=== PATIENT | male | born 1975 | race Caucasian/White ===

== ENCOUNTER → 2016-11-22 | Outpatient (CLI) | payer OTHER ==
[~2016-11-22] MED LIST: ATARAX25 MG PO; BACTRIM DS 8001 TA1 PO; FLEXERIL10 MG PO; IBU-6600 MG PO; MOTRIN800 MG PO; NKHM; NORCO 325 MG-51 TAB PO; PREDNICOT20 MG PO; PREDNISONE5 MG PO; SUBOXONE 8 MG-21 TA2 PO; TAGAMET400 MG PO; ULTRAM50 MG PO; ZANTAC 150150 MG PO
[2016-11-22 17:52] LABS: URINE AMPHETAMINES < 1000 (1000ng/ml); URINE BARBITURATES < 200 (200ng/ml); URINE COCAINE < 300 (300ng/ml)
== END | disposition home or self-care (01) ==
LOC: LAB 16:57
PROVIDERS: Internal Medicine
DX: F11.20 Opioid dependence, uncomplicated (principal)

== ENCOUNTER → 2017-04-07 | Outpatient (CLI) | payer OTHER | END | disposition home or self-care (01) | LOC: RAD 17:39 | DX: M25.532 Pain in left wrist (principal); M79.642 Pain in left hand; M79.632 Pain in left forearm ==

== ENCOUNTER → 2017-10-18 | Outpatient (CLI) | payer OTHER ==
[2017-10-18 16:24] LABS: URINE AMPHETAMINES < 1000 (1000ng/ml); URINE BARBITURATES < 200 (200ng/ml); URINE BENZODIAZEPINES < 200 (200ng/ml); URINE CANNABINOIDS (THC) < 50 (50ng/ml); URINE COCAINE < 300 (300ng/ml); URINE METHADONE < 300 (300ng/ml); URINE OPIATES < 300 (300ng/ml)
[2017-10-18 16:25] LABS: URINE PHENCYCLIDINE < 25 (25ng/ml)
== END | disposition home or self-care (01) ==
LOC: LAB 16:01
PROVIDERS: Internal Medicine
DX: F11.20 Opioid dependence, uncomplicated (principal)

== ENCOUNTER 2017-11-22 23:44 | Emergency (ER) | payer OTHER ==
[~2017-11-22] VITALS: Ht 175.2 cm; Wt 72.6 kg
[2017-11-23] MEDS ORDERED: ANAPROX DS550 MG PO (00:45)
[2017-11-23] MEDS ORDERED: Orphenadrine C100 MG PO (00:45)
== END 2017-11-23 01:20 | disposition home or self-care (01) ==
LOC: ED 23:44
DX: S50.01XA Contusion of right elbow, initial encounter (principal); S40.011A Contusion of right shoulder, initial encounter; W07.XXXA Fall from chair, initial encounter; Y93.89 Activity, other specified; Y92.89 Other specified places as the place of occurrence of the external cause; Y99.9 Unspecified external cause status

== ENCOUNTER 2018-04-12 20:31 | Emergency (ER) | payer OTHER ==
[~2018-04-12] VITALS: Ht 175.2 cm; Wt 72.6 kg
[~2018-04-12 20:31] MED LIST changes: +ANAPROX DS550 MG PO; +Orphenadrine C100 MG PO
== END 2018-04-12 20:51 | disposition home or self-care (01) ==
LOC: ED 20:31
DX: R11.2 Nausea with vomiting, unspecified (principal); R19.7 Diarrhea, unspecified; F17.200 Nicotine dependence, unspecified, uncomplicated

== ENCOUNTER 2018-06-20 17:04 | Emergency (ER) | payer OTHER ==
[~2018-06-20] VITALS: Ht 175.2 cm; Wt 63.5 kg
[2018-06-20] MEDS ORDERED: NAPROSYN500 MG PO (19:14)
[2018-06-20] MEDS ORDERED: PENICILLIN VK500 MG PO (19:14)
== END 2018-06-20 19:18 | disposition home or self-care (01) ==
LOC: ED 17:04
DX: K04.7 Periapical abscess without sinus (principal); F17.200 Nicotine dependence, unspecified, uncomplicated; Z79.1 Long term (current) use of non-steroidal anti-inflammatories (NSAID); Z79.899 Other long term (current) drug therapy

== ENCOUNTER 2018-11-25 19:48 | Emergency (ER) | payer OTHER ==
[~2018-11-25] VITALS: Ht 172.7 cm; Wt 68.0 kg
[~2018-11-25 19:48] MED LIST changes: +NAPROSYN500 MG PO; +PENICILLIN VK500 MG PO
[2018-11-25 20:51] LABS: BASO % 0.5 % (0.0-1.0); EOS # 0.5 10*3/uL (0.0-0.4); EOS % 5.9 % (1.0-4.0); HEMATOCRIT 39.7 % (42.0-52.0); HEMOGLOBIN 13.1 g/dl (14.0-18.0); LYMPH # 3.1 10*3/uL (1.3-4.4); MEAN CELL VOLUME 90.8 fl (80.0-94.0); MEAN PLATELET VOLUME 10.1 fl (9.6-12.3); MONO # 0.8 10*3/uL (0.1-1.0); MONO % 10.3 % (3.0-9.0); NEUT # 3.5 10*3/uL (2.3-7.9); PLATELET COUNT AUTOMATED 250 10*3/uL (130-400); RED BLOOD COUNT 4.37 10*6/uL (4.50-5.90); RED CELL DISTRI WIDTH 12.9 % (0-14.5)
[2018-11-25 21:16] LABS: ALBUMIN 3.5 gm/dl (3.1-4.5); ALKALINE PHOSPHATASE 69 U/L (45-117); BUN 15 mg/dl (7-24); CHLORIDE 108 mmol/L (98-107); CREATININE 0.75 mg/dL (0.70-1.30); LIPASE 132 U/L (73-393); POTASSIUM 4.3 mmol/L (3.5-5.1); SGOT/AST 78 IU/L (3-35); SGPT/ALT 82 U/L (12-78); SODIUM 140 mmol/L (136-145); TOTAL PROTEIN 7.7 gm/dL (6.4-8.2)
[2018-11-25] MEDS ORDERED: ZOFRAN4 MG PO (21:25)
== END 2018-11-25 21:42 | disposition home or self-care (01) ==
LOC: ED 19:48
PROVIDERS: Physician Assistant
DX: K52.9 Noninfective gastroenteritis and colitis, unspecified (principal)

== ENCOUNTER 2018-12-17 18:43 | Emergency (ER) | payer SELFPAY ==
[~2018-12-17] VITALS: Ht 175.2 cm; Wt 68.0 kg
[~2018-12-17 18:43] MED LIST changes: +ZOFRAN4 MG PO
[2018-12-17] MEDS ORDERED: MIRALAX POWDER17 G1 PO (21:10)
== END 2018-12-17 21:16 | disposition home or self-care (01) ==
LOC: ED 18:43
DX: K59.00 Constipation, unspecified (principal); F17.200 Nicotine dependence, unspecified, uncomplicated

== ENCOUNTER → 2019-05-01 | Outpatient (CLI) | payer OTHER ==
[~2019-05-01] MED LIST changes: +MIRALAX POWDER17 G1 PO
[2019-05-01 12:34] LABS: URINE AMPHETAMINES < 1000 (1000ng/ml); URINE BARBITURATES < 200 (200ng/ml); URINE BENZODIAZEPINES < 200 (200ng/ml); URINE CANNABINOIDS (THC) < 50 (50ng/ml); URINE COCAINE < 300 (300ng/ml); URINE METHADONE < 300 (300ng/ml); URINE OPIATES < 300 (300ng/ml); URINE PHENCYCLIDINE < 25 (25ng/ml)
== END | disposition home or self-care (01) ==
LOC: LAB 12:02
PROVIDERS: Internal Medicine
DX: F11.20 Opioid dependence, uncomplicated (principal)

== ENCOUNTER 2019-05-09 22:58 | Emergency (ER) | payer OTHER ==
[~2019-05-09] VITALS: Ht 170.1 cm; Wt 68.0 kg
[2019-05-09 23:24] LABS: BILIRUBIN NEGATIVE (NEGATIVE); BLOOD NEGATIVE (NEGATIVE); CLARITY SL CLOUDY (CLEAR); COLOR YELLOW (YELLOW); GLUCOSE NEGATIVE (NEGATIVE); KETONE NEGATIVE (NEGATIVE); LEUKO ESTERASE NEGATIVE (NEGATIVE); NITRITE NEGATIVE (NEGATIVE); PH 5.5 (5.0-9.0); SPECIFIC GRAVITY >= 1.030 (1.005-1.030)
[2019-05-09 23:35] LABS: BACTERIA TRACE; EPITHELIAL CELLS 0-2; MUCOUS TRACE; RBC 0-2 rbc/hpf (0-2); WBC 0-2 wbc/hpf (0-5)
[2019-05-09 23:39] LABS: BASO % 0.4 % (0.0-1.0); EOS # 0.6 10*3/uL (0.0-0.4); EOS % 6.1 % (1.0-4.0); HEMATOCRIT 40.5 % (42.0-52.0); HEMOGLOBIN 13.7 g/dl (14.0-18.0); LYMPH # 3.2 10*3/uL (1.3-4.4); LYMPH % 35.6 % (27.0-41.0); MEAN CELL VOLUME 89.4 fl (80.0-94.0); MEAN CORPUSCULAR HGB 30.2 pg (27.0-31.0); MEAN CORPUSCULAR HGB CONC 33.8 g/dl (33.0-37.0); MEAN PLATELET VOLUME 9.6 fl (9.6-12.3); MONO # 0.8 10*3/uL (0.1-1.0); MONO % 8.9 % (3.0-9.0); NEUT # 4.4 10*3/uL (2.3-7.9); NEUT % 48.8 % (47.0-73.0); PLATELET COUNT AUTOMATED 292 10*3/uL (130-400); RED BLOOD COUNT 4.53 10*6/uL (4.50-5.90)
[2019-05-09 23:53] LABS: ALBUMIN 4.1 gm/dl (3.1-4.5); ALKALINE PHOSPHATASE 78 U/L (45-117); BUN 21 mg/dl (7-24); CHLORIDE 106 mmol/L (98-107); CREATININE 0.83 mg/dL (0.70-1.30); LIPASE 152 U/L (73-393); POTASSIUM 3.7 mmol/L (3.5-5.1); SGOT/AST 75 IU/L (3-35); SGPT/ALT 95 U/L (12-78); SODIUM 138 mmol/L (136-145)
[2019-05-10] MEDS ORDERED: ULTRAM50 MG PO (00:53)
== END 2019-05-10 01:23 | disposition home or self-care (01) ==
LOC: ED 22:58
PROVIDERS: Emergency Medicine Emergency Medical Services
DX: R10.9 Unspecified abdominal pain (principal); R82.998 Other abnormal findings in urine; R74.0 Nonspecific elevation of levels of transaminase and lactic acid dehydrogenase [LDH]; F17.200 Nicotine dependence, unspecified, uncomplicated; Z79.899 Other long term (current) drug therapy; Z79.2 Long term (current) use of antibiotics

== ENCOUNTER → 2019-05-22 | Outpatient (CLI) | payer OTHER ==
[2019-05-22 16:38] LABS: URINE AMPHETAMINES < 1000 (1000ng/ml); URINE BARBITURATES < 200 (200ng/ml); URINE BENZODIAZEPINES < 200 (200ng/ml); URINE CANNABINOIDS (THC) < 50 (50ng/ml); URINE COCAINE < 300 (300ng/ml); URINE METHADONE < 300 (300ng/ml); URINE OPIATES < 300 (300ng/ml); URINE PHENCYCLIDINE < 25 (25ng/ml)
== END | disposition home or self-care (01) ==
LOC: LAB 16:07
PROVIDERS: Internal Medicine
DX: F11.21 Opioid dependence, in remission (principal)

== ENCOUNTER 2019-05-23 02:27 | Emergency (ER) | payer OTHER ==
[~2019-05-23] VITALS: Ht 170.1 cm; Wt 68.0 kg
[2019-05-23 03:40] LABS: BASO % 0.5 % (0.0-1.0); EOS # 0.6 10*3/uL (0.0-0.4); HEMATOCRIT 39.3 % (42.0-52.0); HEMOGLOBIN 13.3 g/dl (14.0-18.0); LYMPH # 2.8 10*3/uL (1.3-4.4); LYMPH % 38.4 % (27.0-41.0); MEAN CELL VOLUME 89.9 fl (80.0-94.0); MEAN CORPUSCULAR HGB 30.4 pg (27.0-31.0); MEAN CORPUSCULAR HGB CONC 33.8 g/dl (33.0-37.0); MEAN PLATELET VOLUME 9.4 fl (9.6-12.3); MONO # 0.8 10*3/uL (0.1-1.0); MONO % 11.2 % (3.0-9.0); NEUT % 41.8 % (47.0-73.0); PLATELET COUNT AUTOMATED 280 10*3/uL (130-400); RED BLOOD COUNT 4.37 10*6/uL (4.50-5.90); RED CELL DISTRI WIDTH 13.2 % (0-14.5); WHITE BLOOD COUNT 7.3 10*3/uL (4.8-10.8)
[2019-05-23 03:55] LABS: ALBUMIN 3.7 gm/dl (3.1-4.5); ALKALINE PHOSPHATASE 69 U/L (45-117); BUN 13 mg/dl (7-24); CHLORIDE 106 mmol/L (98-107); CREATININE 0.78 mg/dL (0.70-1.30); LIPASE 179 U/L (73-393); SGOT/AST 64 IU/L (3-35); SGPT/ALT 82 U/L (12-78); SODIUM 138 mmol/L (136-145); TOTAL PROTEIN 7.5 gm/dL (6.4-8.2)
[2019-05-23 03:59] LABS: BILIRUBIN NEGATIVE (NEGATIVE); BLOOD NEGATIVE (NEGATIVE); CLARITY CLEAR (CLEAR); COLOR YELLOW (YELLOW); GLUCOSE NEGATIVE (NEGATIVE); KETONE NEGATIVE (NEGATIVE); LEUKO ESTERASE NEGATIVE (NEGATIVE); NITRITE NEGATIVE (NEGATIVE); PH 6.5 (5.0-9.0)
[2019-05-23 04:06] LABS: BACTERIA TRACE; EPITHELIAL CELLS 0-2; MUCOUS TRACE; WBC 0-2 wbc/hpf (0-5)
[2019-05-23 04:07] LABS: URINE AMPHETAMINES < 1000 (1000ng/ml); URINE BARBITURATES < 200 (200ng/ml); URINE BENZODIAZEPINES < 200 (200ng/ml); URINE CANNABINOIDS (THC) < 50 (50ng/ml); URINE COCAINE < 300 (300ng/ml); URINE METHADONE < 300 (300ng/ml); URINE OPIATES < 300 (300ng/ml); URINE PHENCYCLIDINE < 25 (25ng/ml)
== END 2019-05-23 05:24 | disposition home or self-care (01) ==
LOC: ED 02:27
PROVIDERS: Emergency Medicine
DX: R74.0 Nonspecific elevation of levels of transaminase and lactic acid dehydrogenase [LDH] (principal); Z76.0 Encounter for issue of repeat prescription; R10.11 Right upper quadrant pain; Z79.899 Other long term (current) drug therapy

== ENCOUNTER 2019-08-13 22:00 | Emergency (ER) | payer OTHER ==
[~2019-08-13] VITALS: Ht 175.2 cm; Wt 68.0 kg
[~2019-08-13 22:00] MED LIST changes: +SUBOXONE 8 MG-1 EACH SL; -SUBOXONE 8 MG-21 TA2 PO
[2019-08-13] MEDS ORDERED: CLARITIN10 MG PO (23:29)
== END 2019-08-13 23:39 | disposition home or self-care (01) ==
LOC: ED 22:00
DX: J06.9 Acute upper respiratory infection, unspecified (principal); M06.9 Rheumatoid arthritis, unspecified; Z79.899 Other long term (current) drug therapy

== ENCOUNTER → 2019-09-27 | Outpatient (CLI) | payer OTHER ==
[~2019-09-27] MED LIST changes: +CLARITIN10 MG PO
[2019-09-27 16:46] LABS: URINE CANNABINOIDS (THC) < 50 (50ng/ml); URINE COCAINE < 300 (300ng/ml); URINE METHADONE < 300 (300ng/ml); URINE OPIATES < 300 (300ng/ml)
[2019-09-27 16:47] LABS: URINE AMPHETAMINES < 1000 (1000ng/ml); URINE BARBITURATES < 200 (200ng/ml); URINE BENZODIAZEPINES < 200 (200ng/ml)
[2019-09-27 16:53] LABS: URINE PHENCYCLIDINE < 25 (25ng/ml)
== END | disposition home or self-care (01) ==
LOC: LAB 15:56
PROVIDERS: Internal Medicine
DX: F11.20 Opioid dependence, uncomplicated (principal)

== ENCOUNTER 2020-01-16 15:56 | Emergency (ER) | payer OTHER ==
[~2020-01-16] VITALS: Ht 172.7 cm; Wt 71.7 kg
[~2020-01-16 15:56] MED LIST changes: -CLEOCIN HCL150 MG PO; -IBU800 MG PO
[2020-01-16] MEDS ORDERED: CLEOCIN HCL150 MG PO (16:29)
[2020-01-16] MEDS ORDERED: IBU800 MG PO (16:29)
== END 2020-01-16 16:48 | disposition home or self-care (01) ==
LOC: ED 15:56
DX: K04.7 Periapical abscess without sinus (principal); K08.89 Other specified disorders of teeth and supporting structures; M19.90 Unspecified osteoarthritis, unspecified site; F17.200 Nicotine dependence, unspecified, uncomplicated; Z79.899 Other long term (current) drug therapy

== ENCOUNTER → 2020-01-16 | Outpatient (CLI) | payer OTHER ==
[~2020-01-16] MED LIST changes: +CLEOCIN HCL150 MG PO; +IBU800 MG PO
[2020-01-16 17:41] LABS: URINE AMPHETAMINES < 1000 (1000ng/ml); URINE BARBITURATES < 200 (200ng/ml); URINE BENZODIAZEPINES < 200 (200ng/ml); URINE CANNABINOIDS (THC) < 50 (50ng/ml); URINE COCAINE < 300 (300ng/ml); URINE METHADONE < 300 (300ng/ml); URINE OPIATES < 300 (300ng/ml)
[2020-01-16 17:51] LABS: URINE PHENCYCLIDINE < 25 (25ng/ml)
== END | disposition home or self-care (01) ==
LOC: LAB 16:57
PROVIDERS: Internal Medicine
DX: F11.20 Opioid dependence, uncomplicated (principal)

== ENCOUNTER → 2020-03-24 | Outpatient (CLI) | payer OTHER ==
[~2020-03-24] MED LIST changes: +CLEOCIN HCL150 MG PO; +CLINDAMYCIN HC300 MG PO; +IBU800 MG PO
[2020-03-24 16:24] LABS: URINE AMPHETAMINES < 1000 (1000ng/ml); URINE BARBITURATES < 200 (200ng/ml); URINE BENZODIAZEPINES < 200 (200ng/ml); URINE CANNABINOIDS (THC) < 50 (50ng/ml); URINE COCAINE < 300 (300ng/ml); URINE METHADONE < 300 (300ng/ml); URINE OPIATES < 300 (300ng/ml); URINE PHENCYCLIDINE < 25 (25ng/ml)
== END | disposition home or self-care (01) ==
LOC: LAB 15:53
PROVIDERS: Internal Medicine
DX: F11.20 Opioid dependence, uncomplicated (principal)

== ENCOUNTER 2020-03-26 15:36 | Emergency (ER) | payer OTHER ==
[~2020-03-26] VITALS: Ht 170.1 cm; Wt 68.0 kg
[~2020-03-26 15:36] MED LIST changes: -CLINDAMYCIN HC300 MG PO
== END 2020-03-26 18:02 | disposition home or self-care (01) ==
LOC: ED 15:36
DX: G43.909 Migraine, unspecified, not intractable, without status migrainosus (principal)

== ENCOUNTER 2020-03-30 13:04 | Emergency (ER) | payer OTHER ==
[~2020-03-30] VITALS: Ht 170.1 cm; Wt 68.0 kg
[2020-03-30] MEDS ORDERED: CLINDAMYCIN HC300 MG PO (14:56)
[2020-03-30] MEDS ORDERED: NAPROSYN500 MG PO (14:56)
== END 2020-03-30 15:09 | disposition home or self-care (01) ==
LOC: ED 13:04
DX: K04.7 Periapical abscess without sinus (principal)

== ENCOUNTER 2020-04-05 22:03 | Emergency (ER) | payer OTHER ==
[~2020-04-05] VITALS: Ht 170.1 cm; Wt 68.0 kg
[~2020-04-05 22:03] MED LIST changes: +CLINDAMYCIN HC300 MG PO
[2020-04-05] MEDS ORDERED: AUGMENTIN 875875 MG PO (22:43)
== END 2020-04-05 23:29 | disposition home or self-care (01) ==
LOC: ED 22:03
DX: K04.7 Periapical abscess without sinus (principal); F17.200 Nicotine dependence, unspecified, uncomplicated

== ENCOUNTER 2020-04-13 21:59 | Emergency (ER) | payer OTHER ==
[~2020-04-13] VITALS: Ht 170.1 cm; Wt 68.0 kg
[~2020-04-13 21:59] MED LIST changes: +AUGMENTIN 875875 MG PO
== END 2020-04-13 23:36 | disposition home or self-care (01) ==
LOC: ED 21:59
DX: Z02.79 Encounter for issue of other medical certificate (principal); M19.90 Unspecified osteoarthritis, unspecified site; Z79.899 Other long term (current) drug therapy

== ENCOUNTER → 2020-06-14 | Outpatient (CLI) | payer OTHER ==
[~2020-06-14] MED LIST changes: +PROVENTIL HFA6.7 GM INH
[2020-06-14 17:39] LABS: BASO % 0.5 % (0.0-1.0); EOS # 0.5 10*3/uL (0.0-0.4); EOS % 5.8 % (1.0-4.0); HEMATOCRIT 41.2 % (42.0-52.0); LYMPH # 2.5 10*3/uL (1.3-4.4); LYMPH % 32.6 % (27.0-41.0); MEAN CORPUSCULAR HGB 29.5 pg (27.0-31.0); MEAN CORPUSCULAR HGB CONC 32.8 g/dl (33.0-37.0); MEAN PLATELET VOLUME 9.6 fl (9.6-12.3); MONO # 0.8 10*3/uL (0.1-1.0); MONO % 9.9 % (3.0-9.0); NEUT % 51.1 % (47.0-73.0); PLATELET COUNT AUTOMATED 325 10*3/uL (130-400); RED BLOOD COUNT 4.58 10*6/uL (4.50-5.90); RED CELL DISTRI WIDTH 13.1 % (0-14.5); WHITE BLOOD COUNT 7.8 10*3/uL (4.8-10.8)
[2020-06-14 17:55] LABS: ALBUMIN 3.8 gm/dl (3.1-4.5); ALKALINE PHOSPHATASE 72 U/L (45-117); BUN 14 mg/dl (7-24); CHLORIDE 106 mmol/L (98-107); CHOLESTEROL 152 mg/dL (<200); CREATININE 0.72 mg/dL (0.70-1.30); HDL CHOLESTEROL 59 mg/dl (40-60); LDL CHOLESTEROL 57 mg/dL (9-159); SGOT/AST 50 IU/L (3-35); SGPT/ALT 66 U/L (12-78); SODIUM 138 mmol/L (136-145); TOTAL PROTEIN 7.8 gm/dL (6.4-8.2); TRIGLYCERIDES 182 mg/dl (<150); VLDL CHOLESTEROL 36 mg/dL (6-40)
== END | disposition home or self-care (01) ==
LOC: LAB 17:20
PROVIDERS: ATTEND Nurse Practitioner Primary Care
DX: B18.2 Chronic viral hepatitis C (principal); R06.02 Shortness of breath

== ENCOUNTER → 2020-06-16 | Outpatient (CLI) | payer OTHER | END | disposition home or self-care (01) | LOC: RAD 14:16 | PROVIDERS: ATTEND Nurse Practitioner Primary Care | DX: R06.02 Shortness of breath (principal) ==

== ENCOUNTER → 2020-10-23 | Outpatient (CLI) | payer OTHER | END | disposition home or self-care (01) | LOC: RAD 14:12 | PROVIDERS: ATTEND Nurse Practitioner Primary Care | DX: M51.36 Other intervertebral disc degeneration, lumbar region (principal); M48.061 Spinal stenosis, lumbar region without neurogenic claudication; G89.29 Other chronic pain; M54.41 Lumbago with sciatica, right side ==

== ENCOUNTER → 2020-11-13 | Outpatient (CLI) | payer OTHER ==
[2020-11-13 19:12] LABS: URINE AMPHETAMINES < 1000 (1000ng/ml); URINE BARBITURATES < 200 (200ng/ml); URINE BENZODIAZEPINES < 200 (200ng/ml); URINE CANNABINOIDS (THC) < 50 (50ng/ml); URINE COCAINE < 300 (300ng/ml); URINE METHADONE < 300 (300ng/ml); URINE OPIATES < 300 (300ng/ml); URINE PHENCYCLIDINE < 25 (25ng/ml)
== END | disposition home or self-care (01) ==
LOC: LAB 17:42
PROVIDERS: ATTEND Internal Medicine
DX: F11.20 Opioid dependence, uncomplicated (principal)

== ENCOUNTER 2020-11-16 01:56 | Emergency (ER) | payer OTHER ==
[~2020-11-16] VITALS: Ht 162.5 cm; Wt 70.3 kg
== END 2020-11-16 03:41 | disposition home or self-care (01) ==
LOC: ED 01:56
DX: S86.911A Strain of unspecified muscle(s) and tendon(s) at lower leg level, right leg, initial encounter (principal); G43.909 Migraine, unspecified, not intractable, without status migrainosus; Z79.2 Long term (current) use of antibiotics; Z79.899 Other long term (current) drug therapy; X50.1XXA Overexertion from prolonged static or awkward postures, initial encounter; Y93.89 Activity, other specified; Y92.098 Other place in other non-institutional residence as the place of occurrence of the external cause; Y99.8 Other external cause status

== ENCOUNTER → 2021-07-15 | Outpatient (CLI) | payer OTHER ==
[2021-07-15 16:21] LABS: URINE AMPHETAMINES < 1000 (1000ng/ml); URINE BARBITURATES < 200 (200ng/ml); URINE BENZODIAZEPINES < 200 (200ng/ml); URINE CANNABINOIDS (THC) < 50 (50ng/ml); URINE COCAINE < 300 (300ng/ml); URINE METHADONE < 300 (300ng/ml); URINE OPIATES < 300 (300ng/ml); URINE PHENCYCLIDINE < 25 (25ng/ml)
== END | disposition home or self-care (01) ==
LOC: LAB 15:48
PROVIDERS: ATTEND Internal Medicine
DX: F11.20 Opioid dependence, uncomplicated (principal)

== ENCOUNTER 2021-09-19 17:25 | Emergency (ER) | payer OTHER ==
[~2021-09-19] VITALS: Ht 170.1 cm; Wt 68.0 kg
[2021-09-19] MEDS ORDERED: CLINDAMYCIN HC300 MG PO (17:38)
== END 2021-09-19 18:02 | disposition home or self-care (01) ==
LOC: ED 17:25
DX: K08.89 Other specified disorders of teeth and supporting structures (principal)

== ENCOUNTER → 2021-11-18 | Outpatient (CLI) | payer OTHER ==
[2021-11-18 16:54] LABS: URINE AMPHETAMINES < 1000 (1000ng/ml); URINE BARBITURATES < 200 (200ng/ml); URINE BENZODIAZEPINES < 200 (200ng/ml); URINE CANNABINOIDS (THC) < 50 (50ng/ml); URINE COCAINE < 300 (300ng/ml); URINE METHADONE < 300 (300ng/ml); URINE OPIATES < 300 (300ng/ml)
[2021-11-18 16:56] LABS: URINE PHENCYCLIDINE < 25 (25ng/ml)
== END | disposition home or self-care (01) ==
LOC: LAB 16:19
PROVIDERS: ATTEND Internal Medicine
DX: F11.20 Opioid dependence, uncomplicated (principal)

== ENCOUNTER 2022-04-27 14:22 | Emergency (ER) | payer OTHER ==
[~2022-04-27] VITALS: Ht 175.2 cm; Wt 74.8 kg
[2022-04-27] MEDS ORDERED: PROAIR HFA8.5 GM INH (17:42)
== END 2022-04-27 17:49 | disposition home or self-care (01) ==
LOC: ED 14:22
DX: U07.1 COVID-19 (principal)

== ENCOUNTER 2022-06-21 08:27 | Emergency (ER) | payer OTHER ==
[~2022-06-21] VITALS: Ht 170.1 cm; Wt 68.0 kg
[~2022-06-21 08:27] MED LIST changes: +PROAIR HFA8.5 GM INH
[2022-06-21 09:23] LABS: BASO # 0.1 10*3/uL (0.0-0.1); EOS # 0.4 10*3/uL (0.0-0.4); EOS % 6.1 % (1.0-4.0); HEMATOCRIT 46.6 % (42.0-52.0); LYMPH # 1.7 10*3/uL (1.3-4.4); LYMPH % 27.7 % (27.0-41.0); MEAN CELL VOLUME 96.5 fl (80.0-94.0); MEAN CORPUSCULAR HGB 32.7 pg (27.0-31.0); MEAN CORPUSCULAR HGB CONC 33.9 g/dl (33.0-37.0); MEAN PLATELET VOLUME 9.9 fl (9.6-12.3); MONO # 0.7 10*3/uL (0.1-1.0); MONO % 11.4 % (3.0-9.0); NEUT # 3.2 10*3/uL (2.3-7.9); NEUT % 53.5 % (47.0-73.0); PLATELET COUNT AUTOMATED 264 10*3/uL (130-400); RED BLOOD COUNT 4.83 10*6/uL (4.50-5.90); RED CELL DISTRI WIDTH 12.5 % (0-14.5); WHITE BLOOD COUNT 6.1 10*3/uL (4.8-10.8)
[2022-06-21 09:40] LABS: ALKALINE PHOSPHATASE 64 U/L (45-117); BUN 13 mg/dl (7-24); CHLORIDE 106 mmol/L (98-107); POTASSIUM 4.2 mmol/L (3.5-5.1); SGOT/AST 217 IU/L (3-35); SGPT/ALT 222 U/L (12-78); SODIUM 136 mmol/L (136-145); TOTAL PROTEIN 8.4 gm/dL (6.4-8.2)
[2022-06-21 09:44] LABS: BILIRUBIN Negative (Negative); BLOOD Negative (Negative); CLARITY Clear (Clear); COLOR Yellow (Yellow); GLUCOSE Negative (Negative); KETONE Negative (Negative); LEUKO ESTERASE Negative (Negative); NITRITE Negative (Negative); SPECIFIC GRAVITY >= 1.030 (1.001-1.030)
[2022-06-21 09:48] LABS: URINE AMPHETAMINES < 1000 (1000ng/ml); URINE BARBITURATES < 200 (200ng/ml); URINE BENZODIAZEPINES < 200 (200ng/ml); URINE CANNABINOIDS (THC) < 50 (50ng/ml); URINE COCAINE < 300 (300ng/ml); URINE METHADONE < 300 (300ng/ml); URINE OPIATES < 300 (300ng/ml)
[2022-06-21 09:51] LABS: URINE PHENCYCLIDINE < 25 (25ng/ml)
[2022-06-21 10:16] LABS: MUCOUS 1+
[2022-06-21] MEDS ORDERED: NAPROSYN500 MG PO (10:24)
[2022-06-21] MEDS ORDERED: CYCLOBENZAPRINE10 MG PO (10:24)
== END 2022-06-21 10:31 | disposition home or self-care (01) ==
LOC: ED 08:27
PROVIDERS: Emergency Medicine
DX: M54.50 Low back pain, unspecified (principal); F17.200 Nicotine dependence, unspecified, uncomplicated

== ENCOUNTER 2022-08-31 14:59 | Emergency (ER) | payer OTHER ==
[~2022-08-31] VITALS: Ht 170.1 cm; Wt 72.6 kg
[~2022-08-31 14:59] MED LIST changes: +CYCLOBENZAPRINE10 MG PO
[2022-08-31] MEDS ORDERED: CEFDINIR300 MG PO (18:38)
== END 2022-08-31 18:47 | disposition home or self-care (01) ==
LOC: ED 14:59
DX: H65.91 Unspecified nonsuppurative otitis media, right ear (principal)

== ENCOUNTER 2024-01-22 16:14 | Emergency (ER) | payer OTHER ==
[~2024-01-22] VITALS: Ht 170.1 cm; Wt 68.0 kg
[~2024-01-22 16:14] MED LIST changes: +CEFDINIR300 MG PO
== END 2024-01-22 20:23 | disposition home or self-care (01) ==
LOC: ED 16:14
DX: R51.9 Headache, unspecified (principal); M19.90 Unspecified osteoarthritis, unspecified site; Z98.890 Other specified postprocedural states; V89.2XXA Person injured in unspecified motor-vehicle accident, traffic, initial encounter; Y93.89 Activity, other specified; Y92.89 Other specified places as the place of occurrence of the external cause; Y99.8 Other external cause status

== ENCOUNTER 2024-07-12 13:33 | Emergency (ER) | payer OTHER ==
[~2024-07-12] VITALS: Ht 170.1 cm; Wt 68.0 kg
[2024-07-12] MEDS ORDERED: BUPRENORPHINE HY8 MG SL (14:28)
[2024-07-12] MEDS ORDERED: VENT7GM INH (14:29)
[2024-07-12] MEDS ORDERED: NICODERM CQ1 EAC2 TD (15:40)
[2024-07-12] MEDS ORDERED: AVPAK AZITHROM250 M1 PO (15:40)
== END 2024-07-12 15:38 | disposition home or self-care (01) ==
LOC: ED 13:33
DX: J40 Bronchitis, not specified as acute or chronic (principal); M19.90 Unspecified osteoarthritis, unspecified site; F17.290 Nicotine dependence, other tobacco product, uncomplicated; Z98.890 Other specified postprocedural states

== ENCOUNTER → 2024-07-23 | Outpatient (CLI) | payer OTHER ==
[~2024-07-23] MED LIST changes: +AVPAK AZITHROM250 M1 PO; +BUPRENORPHINE HY8 MG SL; +NICODERM CQ1 EAC2 TD; +VENT7GM INH
== END | disposition home or self-care (01) ==
LOC: RAD 15:06
PROVIDERS: ATTEND Nurse Practitioner Primary Care
DX: J40 Bronchitis, not specified as acute or chronic (principal); R05.9 Cough, unspecified; R06.02 Shortness of breath

== ENCOUNTER → 2024-08-31 | Outpatient (CLI) | payer OTHER | END | disposition home or self-care (01) | LOC: CT 09:00 | PROVIDERS: ATTEND Nurse Practitioner Primary Care | DX: R05.3 Chronic cough (principal); R06.02 Shortness of breath; Z72.0 Tobacco use; J43.9 Emphysema, unspecified; I25.10 Atherosclerotic heart disease of native coronary artery without angina pectoris ==

== ENCOUNTER → 2024-09-18 | Outpatient (CLI) | payer OTHER ==
[2024-09-18 12:14] LABS: ALKALINE PHOSPHATASE 84 U/L (46-116); BUN 15 mg/dl (9-23); CHLORIDE 103 mmol/L (98-107); CHOLESTEROL 150 mg/dL (<200); LDL CHOLESTEROL 68 mg/dL (9-159); POTASSIUM 4.1 mmol/L (3.4-5.1); SGPT/ALT 303 U/L (5-49); TOTAL PROTEIN 8.5 gm/dL (6.0-8.0); TRIGLYCERIDES 61 mg/dl (<150)
[2024-09-18 12:50] LABS: BASO # 0.1 10*3/uL (0.0-0.1); BASO % 1.1 % (0.0-1.0); EOS # 0.4 10*3/uL (0.0-0.4); EOS % 6.2 % (1.0-4.0); HEMATOCRIT 43.5 % (42.0-52.0); MEAN CELL VOLUME 93.3 fl (80.0-94.0); MEAN CORPUSCULAR HGB 31.5 pg (27.0-31.0); MEAN CORPUSCULAR HGB CONC 33.8 g/dl (33.0-37.0); MEAN PLATELET VOLUME 10.2 fl (9.6-12.3); MONO # 0.7 10*3/uL (0.1-1.0); MONO % 11.2 % (3.0-9.0); NEUT # 2.9 10*3/uL (2.3-7.9); NEUT % 43.8 % (47.0-73.0); PLATELET COUNT AUTOMATED 216 10*3/uL (130-400); RED BLOOD COUNT 4.66 10*6/uL (4.50-5.90); RED CELL DISTRI WIDTH 13.1 % (0-14.5); WHITE BLOOD COUNT 6.6 10*3/uL (4.8-10.8)
== END | disposition home or self-care (01) ==
LOC: LAB 10:33
PROVIDERS: ATTEND Nurse Practitioner Primary Care
DX: Z13.220 Encounter for screening for lipoid disorders (principal); Z12.5 Encounter for screening for malignant neoplasm of prostate; B18.2 Chronic viral hepatitis C; Z79.899 Other long term (current) drug therapy

== ENCOUNTER → 2024-09-24 | Day surgery (SDC) | payer OTHER ==
[~2024-09-24] VITALS: Ht 170.1 cm; Wt 72.6 kg
[~2024-09-24] MED LIST changes: +Lactated Ringer's Solution 1,000 ML IV ONE; +Lactated Ringer's Solution 500 ML IV ONE; +Lidocaine Hydrochloride 5 ML VIAL IV ONE; +PROPOFOL 200 MG/20 ML VIAL IV ONE
[2024-09-24 09:23] VITALS: BP 144/76
[2024-09-24 10:40] VITALS: BP 107/61
[2024-09-24 10:55] VITALS: BP 114/74
[2024-09-24 11:10] VITALS: BP 142/79
== END | disposition home or self-care (01) ==
LOC: SDC 09-20 09:30
PROVIDERS: ATTEND Surgery
DX: Z12.11 Encounter for screening for malignant neoplasm of colon (principal); D12.5 Benign neoplasm of sigmoid colon; G43.909 Migraine, unspecified, not intractable, without status migrainosus; J45.909 Unspecified asthma, uncomplicated; M19.90 Unspecified osteoarthritis, unspecified site; F17.210 Nicotine dependence, cigarettes, uncomplicated; F10.90 Alcohol use, unspecified, uncomplicated; Z90.89 Acquired absence of other organs; Z86.16 Personal history of COVID-19; Z98.890 Other specified postprocedural states; Z79.899 Other long term (current) drug therapy

== ENCOUNTER 2025-02-10 10:33 | Emergency (ER) | payer OTHER ==
[~2025-02-10] VITALS: Ht 170.1 cm; Wt 68.0 kg
[~2025-02-10 10:33] MED LIST changes: -Lactated Ringer's Solution 1,000 ML IV ONE; -Lactated Ringer's Solution 500 ML IV ONE; -Lidocaine Hydrochloride 5 ML VIAL IV ONE; -PROPOFOL 200 MG/20 ML VIAL IV ONE
[2025-02-10] MEDS ORDERED: PREDNISONE50 MG PO (10:56)
== END 2025-02-10 11:04 | disposition home or self-care (01) ==
LOC: ED 10:33
DX: M25.512 Pain in left shoulder (principal); M25.522 Pain in left elbow; Z79.899 Other long term (current) drug therapy; X50.0XXA Overexertion from strenuous movement or load, initial encounter; Y93.89 Activity, other specified; Y92.89 Other specified places as the place of occurrence of the external cause; Y99.8 Other external cause status

== ENCOUNTER → 2025-02-13 | Outpatient (CLI) | payer OTHER ==
[~2025-02-13] MED LIST changes: +PREDNISONE50 MG PO
== END | disposition home or self-care (01) ==
LOC: RAD 12:10
PROVIDERS: ATTEND Nurse Practitioner Family
DX: M25.522 Pain in left elbow (principal); M79.602 Pain in left arm

== ENCOUNTER → 2025-04-24 | Outpatient (CLI) | payer OTHER ==
[2025-04-24 14:19] LABS: BUN 13 mg/dl (9-23); SGPT/ALT 539 U/L (5-49)
[2025-04-24 14:22] LABS: ACT PARTIAL THROMBO TIME 30.3 SECONDS (20.0-32.1)
== END | disposition home or self-care (01) ==
LOC: LAB 13:23
PROVIDERS: ATTEND Nurse Practitioner Primary Care
DX: R74.8 Abnormal levels of other serum enzymes (principal); I48.91 Unspecified atrial fibrillation

== ENCOUNTER 2025-04-28 13:41 | Emergency (ER) | payer OTHER ==
[~2025-04-28] VITALS: Ht 170.1 cm; Wt 68.0 kg
[2025-04-28 15:51] LABS: BASO # 0.1 10*3/uL (0.0-0.1); BASO % 0.6 % (0.0-1.0); EOS # 0.2 10*3/uL (0.0-0.4); EOS % 1.8 % (1.0-4.0); MEAN CELL VOLUME 96.4 fl (80.0-94.0); MEAN CORPUSCULAR HGB 32.5 pg (27.0-31.0); MEAN PLATELET VOLUME 9.6 fl (9.6-12.3); MONO # 1.3 10*3/uL (0.1-1.0); MONO % 11.3 % (3.0-9.0); NEUT # 7.3 10*3/uL (2.3-7.9); NEUT % 63.7 % (47.0-73.0); NUCLEATED RED BLOOD CELL 0.0 % (0.0-0.0); NUCLEATED RED BLOOD CELL 0.0 10*3/uL (0.0-0.0); PLATELET COUNT AUTOMATED 255 10*3/uL (130-400); RED CELL DISTRI WIDTH 13.4 % (0-14.5)
[2025-04-28 16:21] LABS: BUN 11 mg/dl (9-23)
[2025-04-28] MEDS ORDERED: METHOCARBAMOL750 M1 PO (17:01)
[2025-04-28] MEDS ORDERED: METHOCARBAMOL 750 MG TAB PO ONE (17:05)
== END 2025-04-28 17:45 | disposition home or self-care (01) ==
LOC: ED 13:41
PROVIDERS: Emergency Medicine
DX: R79.1 Abnormal coagulation profile (principal); M79.662 Pain in left lower leg; M06.9 Rheumatoid arthritis, unspecified

== ENCOUNTER 2025-04-29 07:27 | Emergency (ER) | payer OTHER ==
[~2025-04-29] VITALS: Ht 170.1 cm; Wt 68.0 kg
[~2025-04-29 07:27] MED LIST changes: +METHOCARBAMOL750 M1 PO
== END 2025-04-29 09:00 | disposition home or self-care (01) ==
LOC: ED 07:27
DX: S86.912A Strain of unspecified muscle(s) and tendon(s) at lower leg level, left leg, initial encounter (principal); M79.662 Pain in left lower leg; X58.XXXA Exposure to other specified factors, initial encounter; Y93.89 Activity, other specified; Y92.89 Other specified places as the place of occurrence of the external cause; Y99.8 Other external cause status